=== PATIENT | male | born 1970 | race Caucasian/White ===

== ENCOUNTER 2020-09-05 17:42 | Emergency (ER) | payer OTHER ==
[~2020-09-05] VITALS: Ht 170.2 cm; Wt 111.1 kg
[2020-09-05 17:57] VITALS: BP 153/89
--- NOTE | 2020-09-05 18:45 | NUR ---
PT PRESENTS TO THE ED C/O PRODUCTIVE COUGH WITH YELLOWISH/GREENISH PHLEGM, INTERMITTENT FEVER, WATERY DIARRHEA AND LOSS THE SENSE OF TASTE FOR 4 DAYS. REPORTS EXPOSED TO POSITIVE CO-WORKER 2 WKS AGO. PMH: DENIES MEDS: NONE
--- NOTE | 2020-09-05 18:47 | NUR ---
JOSE RAMON SWABBED AND WALKED TO LAB
[2020-09-05 18:51] VITALS: BP 153/89
--- NOTE | 2020-09-05 18:51 | NUR ---
Patient discharged with v/s stable. Written and verbal after care instructions given and explained. Patient alert, oriented and verbalized understanding of instructions. Ambulatory with steady gait. All questions addressed prior to discharge. ID band removed. Patient advised to follow up with PMD. Rx of GUITUSSEN, ACETAMINOPHEN given. Patient educated on indication of medication including possible reaction and side effects. Opportunity to ask questions provided and answered.
--- NOTE | 2020-09-07 12:53 | NUR ---
Covid results received from lab. Results = POSITIVE. Hard copy requested from lab and placed in infection controls mailbox.
== END 2020-09-05 18:51 | disposition home or self-care (01) ==
LOC: MED 17:42
DX: R05 Cough (principal); Z20.828 Contact with and (suspected) exposure to other viral communicable diseases; Z98.890 Other specified postprocedural states
CPT/HCPCS: 99283; U0003

== ENCOUNTER 2023-06-04 16:30 | Emergency (ER) | payer OTHER ==
[~2023-06-04] VITALS: Ht 170.2 cm; Wt 107.5 kg
[2023-06-04 16:50] VITALS: BP 132/78; PULSE 83; RESP 20; TEMP 98; O2SAT 99
[2023-06-04] MEDS ORDERED: LID5T TP ×2 (18:09→18:32)
[2023-06-04] MEDS ORDERED: IBUP-2213 PO ×2 (18:09→18:32)
[2023-06-04] MEDS ORDERED: ATI.5 PO ×2 (18:09→18:32)
== END 2023-06-04 18:32 | disposition home or self-care (01) ==
LOC: MED 16:30
DX: S16.1XXA Strain of muscle, fascia and tendon at neck level, initial encounter (principal); S09.90XA Unspecified injury of head, initial encounter; F41.9 Anxiety disorder, unspecified; Y08.89XA Assault by other specified means, initial encounter; Y93.89 Activity, other specified; Y92.89 Other specified places as the place of occurrence of the external cause; Y99.8 Other external cause status
CPT/HCPCS: 99283

== ENCOUNTER 2023-06-11 11:28 | Emergency (ER) | payer OTHER ==
[~2023-06-11] VITALS: Ht 170.2 cm; Wt 107.5 kg
[~2023-06-11 11:28] MED LIST: ATI.5 PO; IBUP-2213 PO; LID5T TP
[2023-06-11 12:22] VITALS: BP 129/89; PULSE 86; RESP 18; TEMP 98.6; O2SAT 97
[2023-06-11 13:59] LABS: FLU A ANTIGEN negative (NEGATIVE); FLU B ANTIGEN negative (NEGATIVE)
[2023-06-11] MEDS ORDERED: NIRM1TAB PO (14:02)
== END 2023-06-11 14:11 | disposition home or self-care (01) ==
LOC: MED 11:28
DX: U07.1 COVID-19 (principal); Z79.899 Other long term (current) drug therapy
CPT/HCPCS: 99283